=== PATIENT | male | born 1980 | race Caucasian/White ===

== ENCOUNTER 2018-02-13 07:11 | Observation (INO) ==
[2018-02-13] MEDS ORDERED: NITROGLYCERIN SL 0.4 MG TABLET SL PRN (07:26)
[2018-02-13] MEDS ORDERED: METOPROLOL TARTRATE 5 MG/5 ML VIAL IV STA (07:26)
[2018-02-13] MEDS ORDERED: ENOXAPARIN 100 MG/ML SYRINGE SUBCUT STA (07:26)
[2018-02-13] MEDS ORDERED: ASPIRIN 325 MG TABLET PO STA (07:26)
[2018-02-13] MEDS ORDERED: MORPHINE 4 MG/1 ML VIAL IV PRN (07:26)
[2018-02-13] MEDS ORDERED: ONDANSETRON 4 MG/2 ML VIAL IV PRN ×2 (07:26→11:16)
[2018-02-13 07:50] LABS: Basophils % 0.3 % (0.0-0.8); Eosinophils % 0.3 % (0.00-10.9); Hemoglobin 16.7 GM/DL (14.0-18.0); Immature Granulocytes % 0.5 %; Immature Granulocytes Absolute 0.05 #; Lymphocytes # 2.1 10*3/uL (1.4-4.0); Lymphocytes % 21.7 % (21.2-54.2); Mean Corpuscular HGB Conc 35.5 GM/DL (32-36); Mean Corpuscular Hemoglobin 31 PG (27-34); Mean Corpuscular Volume 85.8 FL (87-102); Mean Platelet Volume 8.6 FL (9.6-12.0); Monocytes # 0.5 10*3/uL (0.11-0.8); Monocytes % 5.3 % (1.7-12.7); Neutrophils % 71.9 % (38.7-73.9); Platelet Count 254 T/CUMM (130-400); Red Blood Count 5.48 MC/CUMM (3.8-5.5); Red Cell Distribution Width 11.9 % (9.3-17.3); White Blood Count 9.7 T/CUMM (4-12)
[2018-02-13 07:57] LABS: INR 0.9; Partial Thromboplastin Time 27.6 SECS (0-40)
[2018-02-13 08:20] LABS: Albumin 3.9 G/DL (3.4-5.0); Bilirubin,Total 1.3 MG/DL (0.2-1.0); Calcium 8.6 MG/DL (8.5-10.1); Osmolality,Calculated 280.4 MOS/KG (273-304); Potassium 3.8 MMOL/L (3.5-5.1); Total Protein 7.2 G/DL (6.4-8.3)
[2018-02-13] MEDS: NITROGLYCERIN 2% OINT 1 INCH/GM PACK TOP STA ×2 (10:28→10:51)
[2018-02-13 10:48] LABS: Apearance,Urine CLEAR (Clear); Bilirubin,Urine Negative (Negative); Blood, Urine Negative (Negative); Glucose,Urine (UA) Negative (Negative); Ketones,Urine Negative (Negative); Mucus,Urine Occasional /LPF (Occasional); Nitrite,Urine Negative (Negative); Protein,Urine Negative; RBC,Urine 2 /HPF (0-4); Urine Color Yellow (Yellow); Urine Specific Gravity 1.025 (1.001-1.035); Urine Urobilinogen < 2.0 EU/DL (0.2-1.0); WBC,Urine <1 /HPF (0-6)
[2018-02-13 10:52] LABS: Barbiturates Screen,Urine Negative (Negative); Benzodiazepines Screen,Urine Negative (Negative); Cannabinoid Screen,Urine Negative (Negative); Opiate Screen,Urine Positive (Negative); Phencyclidine Screen,Urine Negative (Negative)
[2018-02-13] MEDS ORDERED: PANTOPRAZOLE 40 MG TABLET PO SCH (11:16)
[2018-02-13] MEDS ORDERED: ACETAMINOPHEN 325 MG TABLET PO PRN (11:16)
[2018-02-13] MEDS: SODIUM CHLORIDE 0.9% 1,000 ML IV SCH ×2 (13:19→21:03)
[2018-02-13] MEDS: DOCUSATE SODIUM 100 MG CAPSULE PO SCH ×2 (13:19→21:04)
[2018-02-13] MEDS ORDERED: clonazePAM 0.5 MG TABLET PO PRN (15:35)
[2018-02-13 20:47] LABS: Risk Ratio 5.15; VLDL CHOLESTEROL 66.8 MG/DL
[2018-02-13] MEDS ORDERED: ENOXAPARIN 100 MG/ML SYRINGE SUBCUT ONE (21:00)
[2018-02-13] MEDS: DOXEPIN 25 MG CAPSULE PO SCH (21:06)
[2018-02-13] MEDS: PANTOPRAZOLE 40 MG TABLET PO SCH (21:07)
[2018-02-13] MEDS: GABAPENTIN 100 MG CAPSULE PO SCH ×2 (21:07)
[2018-02-13] MEDS: ACETAMINOPHEN 325 MG TABLET PO SCH ×2 (21:14→21:17)
[2018-02-13] MEDS: traMADol 50 MG TABLET PO SCH ×2 (21:14→21:17)
[2018-02-13] MEDS ORDERED: FLUoxetine 20 MG CAPSULE PO ONE (21:30)
[2018-02-14] MEDS: SODIUM CHLORIDE 0.9% 1,000 ML IV SCH ×3 (05:05→21:11)
[2018-02-14 05:10] LABS: Basophils % 0.5 % (0.0-0.8); Eosinophils % 0.6 % (0.00-10.9); Hematocrit 43.6 VOL% (42.0-52.0); Hemoglobin 15.2 GM/DL (14.0-18.0); Immature Granulocytes % 0.6 %; Immature Granulocytes Absolute 0.04 #; Lymphocytes # 2.8 10*3/uL (1.4-4.0); Lymphocytes % 43.3 % (21.2-54.2); Mean Corpuscular HGB Conc 34.9 GM/DL (32-36); Mean Corpuscular Hemoglobin 30 PG (27-34); Mean Platelet Volume 8.4 FL (9.6-12.0); Monocytes # 0.5 10*3/uL (0.11-0.8); Monocytes % 7.5 % (1.7-12.7); Neutrophils # 3.1 10*3/uL (1.4-7.4); Neutrophils % 47.5 % (38.7-73.9); Platelet Count 200 T/CUMM (130-400); Red Blood Count 5.07 MC/CUMM (3.8-5.5); Red Cell Distribution Width 12.1 % (9.3-17.3); White Blood Count 6.5 T/CUMM (4-12)
[2018-02-14 05:43] LABS: Albumin 3.2 G/DL (3.4-5.0); Bilirubin,Total 0.8 MG/DL (0.2-1.0); Calcium 7.9 MG/DL (8.5-10.1); Potassium 4.2 MMOL/L (3.5-5.1); Total Protein 6.1 G/DL (6.4-8.3)
[2018-02-14] MEDS ORDERED: POTASSIUM CHLORIDE RIDER 10 MEQ in PREMIX 1 EACH IV PRN (08:43)
[2018-02-14] MEDS ORDERED: DIAZEPAM 5 MG TABLET PO ONE (08:43)
[2018-02-14] MEDS ORDERED: diphenhydrAMINE CAP 25 MG CAPSULE PO ONE (08:43)
[2018-02-14] MEDS ORDERED: MAGNESIUM SULF RIDER 2 GM in PREMIX 1 EACH IV PRN (08:43)
[2018-02-14] MEDS: GABAPENTIN 100 MG CAPSULE PO SCH ×3 (10:20→21:05)
[2018-02-14] MEDS: LISINOPRIL/HCTZ 20-25 MG TABLET PO SCH (10:20)
[2018-02-14] MEDS: PANTOPRAZOLE 40 MG TABLET PO SCH ×2 (10:20→21:05)
[2018-02-14] MEDS: ASPIRIN CHEW 81 MG TABLET PO SCH (10:20)
[2018-02-14] MEDS: DOCUSATE SODIUM 100 MG CAPSULE PO SCH ×2 (10:20→21:06)
[2018-02-14] MEDS: ACETAMINOPHEN 325 MG TABLET PO SCH ×2 (10:21→21:05)
[2018-02-14] MEDS: traMADol 50 MG TABLET PO SCH ×2 (10:21→21:05)
[2018-02-14] MEDS: FLUoxetine 20 MG CAPSULE PO SCH (10:21)
[2018-02-14] MEDS ORDERED: VERAPAMIL 5 MG/2 ML VIAL ONE (10:50)
[2018-02-14] MEDS ORDERED: NITROGLYCERIN DRIP 50 MG/250 ML BOTTLE IV ONE (10:50)
[2018-02-14] MEDS ORDERED: MIDAZOLAM 2 MG/2 ML VIAL ONE (10:56)
[2018-02-14] MEDS ORDERED: fentaNYL 100 MCG/2 ML VIAL ONE (10:56)
[2018-02-14] MEDS ORDERED: ENOXAPARIN 60 MG/0.6 ML SYRINGE ONE (11:14)
[2018-02-14] MEDS ORDERED: FENOFIBRATE 145 MG TABLET PO SCH (21:00)
[2018-02-14] MEDS ORDERED: ROSUVASTATIN 10 MG TABLET PO SCH (21:00)
[2018-02-14] MEDS: DOXEPIN 25 MG CAPSULE PO SCH (21:05)
[2018-02-15 04:34] LABS: Basophils % 0.4 % (0.0-0.8); Eosinophils % 0.6 % (0.00-10.9); Hematocrit 42.4 VOL% (42.0-52.0); Hemoglobin 14.6 GM/DL (14.0-18.0); Immature Granulocytes % 0.6 %; Immature Granulocytes Absolute 0.04 #; Lymphocytes # 2.8 10*3/uL (1.4-4.0); Lymphocytes % 38.8 % (21.2-54.2); Mean Corpuscular HGB Conc 34.4 GM/DL (32-36); Mean Corpuscular Hemoglobin 30 PG (27-34); Mean Corpuscular Volume 88.3 FL (87-102); Mean Platelet Volume 8.6 FL (9.6-12.0); Monocytes # 0.5 10*3/uL (0.11-0.8); Monocytes % 7.3 % (1.7-12.7); Neutrophils # 3.7 10*3/uL (1.4-7.4); Neutrophils % 52.3 % (38.7-73.9); Platelet Count 214 T/CUMM (130-400); Red Cell Distribution Width 11.9 % (9.3-17.3); White Blood Count 7.1 T/CUMM (4-12)
[2018-02-15] MEDS: SODIUM CHLORIDE 0.9% 1,000 ML IV SCH (05:13)
[2018-02-15 05:17] LABS: Calcium 7.8 MG/DL (8.5-10.1); Osmolality,Calculated 283.1 MOS/KG (273-304); Potassium 3.9 MMOL/L (3.5-5.1)
[2018-02-15 07:31] VITALS: BP 126/82
[2018-02-15] MEDS: LISINOPRIL/HCTZ 20-25 MG TABLET PO SCH (09:11)
[2018-02-15] MEDS: ASPIRIN CHEW 81 MG TABLET PO SCH (09:11)
[2018-02-15] MEDS: FLUoxetine 20 MG CAPSULE PO SCH (09:11)
[2018-02-15] MEDS: DOCUSATE SODIUM 100 MG CAPSULE PO SCH (09:12)
[2018-02-15] MEDS: PANTOPRAZOLE 40 MG TABLET PO SCH (09:12)
[2018-02-15] MEDS: traMADol 50 MG TABLET PO SCH (09:12)
[2018-02-15] MEDS: ACETAMINOPHEN 325 MG TABLET PO SCH (09:12)
[2018-02-15] MEDS: GABAPENTIN 100 MG CAPSULE PO SCH (09:12)
== END 2018-02-15 10:55 | disposition home or self-care (01) ==
LOC: N.ED 07:11 → N.EDINP 07:11 → N.TELES 10:04
PROVIDERS: ADMIT Family Medicine; ATTEND Family Medicine
PROC: CLCCHCL (ICD-10-PCS; 2018-02-14 12:15)

== ENCOUNTER 2019-01-11 06:24 | Observation (INO) ==
[2019-01-11] MEDS ORDERED: ALUM/MAG/SIMETH/LIDO VISC 1:1 30 ML BOTTLE PO STA (06:43)
[2019-01-11 07:07] LABS: Basophils % 0.4 % (0.0-0.8); Eosinophils % 0.1 % (0.00-10.9); Hematocrit 46.2 VOL% (42.0-52.0); Hemoglobin 15.5 GM/DL (14.0-18.0); Immature Granulocytes % 0.5 %; Immature Granulocytes Absolute 0.04 #; Lymphocytes % 25.6 % (21.2-54.2); Mean Corpuscular HGB Conc 33.5 GM/DL (32-36); Mean Corpuscular Hemoglobin 30 PG (27-34); Mean Corpuscular Volume 90.2 FL (87-102); Mean Platelet Volume 8.3 FL (9.6-12.0); Monocytes # 0.4 10*3/uL (0.11-0.8); Neutrophils # 5.5 10*3/uL (1.4-7.4); Neutrophils % 68.4 % (38.7-73.9); Platelet Count 225 T/CUMM (130-400); Red Blood Count 5.12 MC/CUMM (3.8-5.5); Red Cell Distribution Width 12.2 % (9.3-17.3)
[2019-01-11 07:18] LABS: INR 0.9; PT Patient Result 10.2 SECS; Partial Thromboplastin Time 26.1 SECS (0-40)
[2019-01-11 07:26] LABS: Albumin 3.7 G/DL (3.4-5.0); Bilirubin,Total 0.4 MG/DL (0.2-1.0); Calcium 8.4 MG/DL (8.5-10.1); Osmolality,Calculated 280.4 MOS/KG (273-304); Potassium 4.2 MMOL/L (3.5-5.1)
[2019-01-11] MEDS ORDERED: ONDANSETRON 4 MG/2 ML VIAL IV PRN (09:31)
[2019-01-11] MEDS ORDERED: DOCUSATE SODIUM 100 MG CAPSULE PO SCH (09:31)
[2019-01-11] MEDS ORDERED: PANTOPRAZOLE 40 MG TABLET PO SCH (09:31)
[2019-01-11] MEDS ORDERED: LISINOPRIL/HCTZ 20-25 MG TABLET PO SCH (10:00)
[2019-01-11] MEDS ORDERED: MORPHINE 4 MG/1 ML VIAL IV PRN (10:02)
[2019-01-11] MEDS ORDERED: ASPIRIN EC 81 MG TABLET PO SCH (10:30)
[2019-01-11] MEDS: ACETAMINOPHEN 325 MG TABLET PO PRN (11:23)
[2019-01-11] MEDS ORDERED: LISINOPRIL 10 MG TABLET PO ONE (11:42)
[2019-01-11] MEDS ORDERED: PROPRANOLOL 10 MG TABLET PO SCH (13:30)
[2019-01-11] MEDS ORDERED: clonazePAM 0.5 MG TABLET PO SCH (15:00)
[2019-01-11 16:16] VITALS: BP 123/69
[2019-01-11] MEDS ORDERED: DOXEPIN 25 MG CAPSULE PO SCH (21:00)
[2019-01-11] MEDS ORDERED: ROSUVASTATIN 10 MG TABLET PO SCH (21:00)
[2019-01-12] MEDS ORDERED: buPROPion XL 150 MG TABLET PO SCH (09:00)
[2019-01-12] MEDS ORDERED: FLUoxetine 20 MG CAPSULE PO SCH (09:00)
== END 2019-01-11 18:39 | disposition home or self-care (01) ==
LOC: N.ED 06:24 → N.EDINP 06:24 → N.TELEN 09:20
PROVIDERS: ADMIT Family Medicine; ATTEND Family Medicine

== ENCOUNTER 2021-03-31 07:20 | Inpatient (IN) ==
[2021-03-31] MEDS ORDERED: HYDROmorphone 2 MG/1 ML VIAL IV STA (07:37)
[2021-03-31] MEDS ORDERED: ONDANSETRON 4 MG/2 ML VIAL IV STA (07:37)
[2021-03-31] MEDS ORDERED: SODIUM CHLORIDE 0.9% 1,000 ML IV STA (07:37)
[2021-03-31 07:53] LABS: Basophils % 0.2 % (0.0-0.8); Eosinophils % 0.1 % (0.00-10.9); Hematocrit 44.3 VOL% (42.0-52.0); Hemoglobin 15.9 GM/DL (14.0-18.0); Immature Granulocytes % 0.5 %; Immature Granulocytes Absolute 0.06 #; Lymphocytes % 25.9 % (21.2-54.2); Mean Corpuscular HGB Conc 35.9 GM/DL (32-36); Mean Platelet Volume 8.2 FL (9.6-12.0); Monocytes % 7.4 % (1.7-12.7); Neutrophils % 65.9 % (38.7-73.9); Platelet Count 218 T/CUMM (130-400); Red Blood Count 5.09 MC/CUMM (3.8-5.5); Red Cell Distribution Width 12.2 % (9.3-17.3); White Blood Count 11.4 T/CUMM (4-12)
[2021-03-31 08:13] LABS: Alanine Aminotransferase 37 U/L (16-61); Albumin 3.9 G/DL (3.4-5.0); Alkaline Phosphatase 92 U/L (45-117); Aspartate Amino Transferase 18 U/L (0-37); Bilirubin,Total < 0.39 MG/DL (0.2-1.0); Blood Urea Nitrogen 14 MG/DL (7-18); Calcium 8.8 MG/DL (8.5-10.1); Carbon Dioxide 29 MMOL/L (21-32); Estimated Glom Filtration Rate 132 ML/MIN; Glucose 89 MG/DL (74-106); Osmolality,Calculated 272.8 MOS/KG (273-304); Sodium 137 MMOL/L (136-145); Total Protein 7.4 G/DL (6.4-8.2)
[2021-03-31 10:31] LABS: Bilirubin,Urine Negative (Negative); Blood, Urine Negative (Negative); Glucose,Urine (UA) Negative (Negative); Hyaline Casts,Urine 5 /LPF (0-3); Ketones,Urine Negative (Negative); Mucus,Urine Many /LPF (Occasional); Nitrite,Urine Negative (Negative); Protein,Urine 30 MG/DL; RBC,Urine 2 /HPF (0-4); Urine Appearance CLEAR (Clear); Urine Color Yellow (Yellow); Urine Specific Gravity 1.029 (1.001-1.035)
[2021-03-31] MEDS ORDERED: ACETAMINOPHEN 325 MG TABLET PO PRN (11:21)
[2021-03-31] MEDS ORDERED: ONDANSETRON 4 MG/2 ML VIAL IV PRN (11:21)
[2021-03-31] MEDS: SODIUM CHLORIDE 0.9% 1,000 ML IV SCH ×2 (11:50→20:19)
[2021-03-31] MEDS: PANTOPRAZOLE 40 MG TABLET PO SCH (12:29)
[2021-03-31] MEDS: DOCUSATE SODIUM 100 MG CAPSULE PO SCH ×2 (12:29→20:20)
[2021-03-31] MEDS ORDERED: clonazePAM 0.5 MG TABLET PO PRN (14:07)
[2021-03-31] MEDS ORDERED: ZALEPLON 5 MG CAPSULE PO PRN (17:26)
[2021-03-31] MEDS: DOXEPIN 25 MG CAPSULE PO SCH (20:19)
[2021-03-31] MEDS: ROSUVASTATIN 10 MG TABLET PO SCH (20:20)
[2021-03-31] MEDS: PRIMIDONE 50 MG TABLET PO SCH (20:20)
[2021-04-01] MEDS: HYDROmorphone 2 MG/1 ML VIAL IV PRN ×3 (01:32→21:17)
[2021-04-01] MEDS: SODIUM CHLORIDE 0.9% 1,000 ML IV SCH ×2 (04:10→16:53)
[2021-04-01 06:12] LABS: Basophils % 0.3 % (0.0-0.8); Eosinophils % 0.3 % (0.00-10.9); Hematocrit 43.2 VOL% (42.0-52.0); Hemoglobin 14.3 GM/DL (14.0-18.0); Immature Granulocytes % 0.8 %; Immature Granulocytes Absolute 0.05 #; Lymphocytes # 3.2 10*3/uL (1.4-4.0); Mean Corpuscular HGB Conc 33.1 GM/DL (32-36); Mean Corpuscular Volume 91.3 FL (87-102); Mean Platelet Volume 8.3 FL (9.6-12.0); Monocytes % 7.3 % (1.7-12.7); Neutrophils % 43.3 % (38.7-73.9); Platelet Count 190 T/CUMM (130-400); Red Blood Count 4.73 MC/CUMM (3.8-5.5); Red Cell Distribution Width 12.5 % (9.3-17.3); White Blood Count 6.6 T/CUMM (4-12)
[2021-04-01 06:47] LABS: Calcium 7.9 MG/DL (8.5-10.1); Osmolality,Calculated 279.4 MOS/KG (273-304); Potassium 4.5 MMOL/L (3.5-5.1)
[2021-04-01] MEDS ORDERED: LACTATED RINGERS 1,000 ML IV SCH (08:00)
[2021-04-01] MEDS: ASPIRIN EC 81 MG TABLET PO SCH (12:00)
[2021-04-01] MEDS: LISINOPRIL/HCTZ 20-25 MG TABLET PO SCH (12:01)
[2021-04-01] MEDS: buPROPion XL 150 MG TABLET PO SCH (12:01)
[2021-04-01] MEDS: DOCUSATE SODIUM 100 MG CAPSULE PO SCH ×2 (12:01→21:19)
[2021-04-01] MEDS: FLUoxetine 20 MG CAPSULE PO SCH (12:01)
[2021-04-01] MEDS: PANTOPRAZOLE 40 MG TABLET PO SCH (12:01)
[2021-04-01] MEDS: PRIMIDONE 50 MG TABLET PO SCH ×2 (12:01→21:18)
[2021-04-01] MEDS ORDERED: propofoL 200 MG/20 ML VIAL IV ONE (13:43)
[2021-04-01] MEDS ORDERED: LIDOCAINE 100 MG/5 ML SYRINGE ONE (13:43)
[2021-04-01] MEDS: DOXEPIN 25 MG CAPSULE PO SCH (21:19)
[2021-04-01] MEDS: ROSUVASTATIN 10 MG TABLET PO SCH (21:19)
[2021-04-02 06:17] LABS: Basophils % 0.3 % (0.0-0.8); Eosinophils % 0.1 % (0.00-10.9); Hematocrit 42.7 VOL% (42.0-52.0); Hemoglobin 14.1 GM/DL (14.0-18.0); Immature Granulocytes % 0.6 %; Immature Granulocytes Absolute 0.04 #; Lymphocytes # 2.1 10*3/uL (1.4-4.0); Lymphocytes % 29.4 % (21.2-54.2); Mean Platelet Volume 8.2 FL (9.6-12.0); Monocytes % 8.3 % (1.7-12.7); Neutrophils % 61.3 % (38.7-73.9); Platelet Count 183 T/CUMM (130-400); Red Blood Count 4.69 MC/CUMM (3.8-5.5); Red Cell Distribution Width 12.3 % (9.3-17.3); White Blood Count 7.2 T/CUMM (4-12)
[2021-04-02 06:47] LABS: Albumin 3.1 G/DL (3.4-5.0); Bilirubin,Total 0.7 MG/DL (0.2-1.0); Calcium 8.2 MG/DL (8.5-10.1); Osmolality,Calculated 278.4 MOS/KG (273-304); Potassium 3.9 MMOL/L (3.5-5.1); Risk Ratio 5.78; Total Protein 6.1 G/DL (6.4-8.2); VLDL Cholesterol 52.8 MG/DL
[2021-04-02 07:26] LABS: Sedimentation Rate-Westergren 5 MM/HR (0-15)
[2021-04-02] MEDS ORDERED: HYOSCYAMINE 0.125 MG TABLET PO PRN (08:10)
[2021-04-02] MEDS: FLUoxetine 20 MG CAPSULE PO SCH (08:19)
[2021-04-02] MEDS: buPROPion XL 150 MG TABLET PO SCH (08:20)
[2021-04-02] MEDS: PANTOPRAZOLE 40 MG TABLET PO SCH (08:20)
[2021-04-02] MEDS: LISINOPRIL/HCTZ 20-25 MG TABLET PO SCH (08:20)
[2021-04-02] MEDS: ASPIRIN EC 81 MG TABLET PO SCH (08:20)
[2021-04-02] MEDS: DOCUSATE SODIUM 100 MG CAPSULE PO SCH (08:20)
[2021-04-02] MEDS: PRIMIDONE 50 MG TABLET PO SCH (08:20)
[2021-04-02] MEDS: SODIUM CHLORIDE 0.9% 1,000 ML IV SCH (08:23)
[2021-04-02 12:12] VITALS: BP 135/64
[2021-04-02] MEDS ORDERED: AMITRIPTYLINE 25 MG TABLET PO SCH (21:00)
== END 2021-04-02 14:16 | disposition home or self-care (01) | DRG 392 ==
LOC: N.ED 07:20 → N.EDINP 07:39 → N.5E 10:59
PROVIDERS: ADMIT Family Medicine; ATTEND Family Medicine

== ENCOUNTER 2022-07-05 07:11 | Observation (INO) ==
[2022-07-05] MEDS ORDERED: HYDROmorphone 1 MG/1 ML SYRINGE IV STA (07:31)
[2022-07-05] MEDS ORDERED: SODIUM CHLORIDE 0.9% 1,000 ML IV STA (07:31)
[2022-07-05] MEDS ORDERED: ONDANSETRON 4 MG/2 ML VIAL IV STA (07:31)
[2022-07-05 07:58] LABS: Basophils % 0.4 % (0.0-0.8); Eosinophils % 0.3 % (0.00-10.9); Hematocrit 49.4 VOL% (42.0-52.0); Hemoglobin 16.4 GM/DL (14.0-18.0); Immature Granulocytes % 0.6 %; Immature Granulocytes Absolute 0.05 #; Lymphocytes # 1.6 10*3/uL (1.4-4.0); Lymphocytes % 20.5 % (21.2-54.2); Mean Corpuscular HGB Conc 33.2 GM/DL (32-36); Mean Platelet Volume 8.4 FL (9.6-12.0); Monocytes # 0.5 10*3/uL (0.11-0.8); Monocytes % 6.2 % (1.7-12.7); Platelet Count 260 T/CUMM (130-400); Red Blood Count 5.81 MC/CUMM (3.8-5.5); Red Cell Distribution Width 13.3 % (9.3-17.3)
[2022-07-05 08:23] LABS: Bilirubin,Total 0.8 MG/DL (0.20-1.00); Calcium 9.4 MG/DL (8.5-10.1); Potassium 3.8 MMOL/L (3.5-5.1)
[2022-07-05 11:46] LABS: Bacteria,Urine Occasional /HPF (Few); Glucose,Urine (UA) Negative (Negative); Ketones,Urine Negative (Negative); Mucus,Urine Few /LPF (Occasional); Nitrite,Urine Negative (Negative); Protein,Urine Negative (Negative); RBC,Urine 1 /HPF (0-4); Urine Appearance Clear (Clear); Urine Color Yellow (Yellow); Urine pH 5.5 (4.5-8.0)
[2022-07-05 11:47] LABS: Bilirubin,Urine Negative (Negative); Blood, Urine Negative (Negative)
[2022-07-05] MEDS ORDERED: hydrALAZINE 20 MG/1 ML VIAL IV PRN (12:28)
[2022-07-05] MEDS ORDERED: ACETAMINOPHEN 325 MG TABLET PO PRN (12:28)
[2022-07-05] MEDS ORDERED: PROMETHAZINE 25 MG TABLET PO PRN (12:33)
[2022-07-05] MEDS: ONDANSETRON 4 MG/2 ML VIAL IV PRN ×2 (12:41→20:32)
[2022-07-05] MEDS: LACTATED RINGERS 1,000 ML IV SCH ×2 (13:40→20:33)
[2022-07-05] MEDS: PANTOPRAZOLE 40 MG VIAL IV SCH (13:40)
[2022-07-05 14:26] LABS: Hematocrit 47.8 VOL% (42.0-52.0); Hemoglobin 15.9 GM/DL (14.0-18.0)
[2022-07-05] MEDS: clonazePAM 0.5 MG TABLET PO SCH ×2 (14:28→20:31)
[2022-07-05] MEDS: MORPHINE 2 MG/1 ML SYRINGE IV PRN ×2 (16:30→20:33)
[2022-07-05 18:59] LABS: Hematocrit 43.8 VOL% (42.0-52.0); Hemoglobin 14.7 GM/DL (14.0-18.0)
[2022-07-05] MEDS: PRIMIDONE 50 MG TABLET PO SCH (20:32)
[2022-07-05] MEDS ORDERED: ROSUVASTATIN 10 MG TABLET PO SCH (21:00)
[2022-07-06 00:38] LABS: Hematocrit 41.9 VOL% (42.0-52.0)
[2022-07-06] MEDS: ONDANSETRON 4 MG/2 ML VIAL IV PRN (04:35)
[2022-07-06] MEDS: LACTATED RINGERS 1,000 ML IV SCH (04:36)
[2022-07-06] MEDS: MORPHINE 2 MG/1 ML SYRINGE IV PRN (04:36)
[2022-07-06 05:46] LABS: Albumin 3.4 G/DL (3.4-5.0); Bilirubin,Total 0.9 MG/DL (0.20-1.00); Calcium 8.8 MG/DL (8.5-10.1); Osmolality,Calculated 276.7 MOS/KG (273-304); Potassium 3.6 MMOL/L (3.5-5.1); Total Protein 6.7 G/DL (6.4-8.2)
[2022-07-06 05:49] LABS: Basophils % 0.5 % (0.0-0.8); Eosinophils % 0.3 % (0.00-10.9); Hematocrit 42.8 VOL% (42.0-52.0); Hemoglobin 14.1 GM/DL (14.0-18.0); Immature Granulocytes % 0.5 %; Immature Granulocytes Absolute 0.03 #; Lymphocytes # 1.9 10*3/uL (1.4-4.0); Lymphocytes % 30.4 % (21.2-54.2); Mean Corpuscular HGB Conc 32.9 GM/DL (32-36); Mean Corpuscular Volume 87.7 FL (87-102); Mean Platelet Volume 8.3 FL (9.6-12.0); Monocytes # 0.6 10*3/uL (0.11-0.8); Monocytes % 9.1 % (1.7-12.7); Neutrophils % 59.2 % (38.7-73.9); Platelet Count 208 T/CUMM (130-400); Red Blood Count 4.88 MC/CUMM (3.8-5.5); Red Cell Distribution Width 13.2 % (9.3-17.3); White Blood Count 6.3 T/CUMM (4-12)
[2022-07-06] MEDS: clonazePAM 0.5 MG TABLET PO SCH (08:48)
[2022-07-06] MEDS: PRIMIDONE 50 MG TABLET PO SCH (08:49)
[2022-07-06] MEDS: PANTOPRAZOLE 40 MG VIAL IV SCH (08:52)
[2022-07-06] MEDS ORDERED: FLUoxetine 20 MG CAPSULE PO SCH (09:00)
[2022-07-06] MEDS ORDERED: lisinopriL 20 MG TABLET PO SCH (09:00)
[2022-07-06] MEDS ORDERED: buPROPion XL 150 MG TABLET PO SCH (09:00)
[2022-07-06 11:53] VITALS: BP 122/70
[2022-07-07] MEDS ORDERED: PANTOPRAZOLE 40 MG TABLET PO SCH (06:30)
== END 2022-07-06 11:50 | disposition home or self-care (01) ==
LOC: N.EDINP 07:11 → N.ED 07:11 → N.5E 13:42
PROVIDERS: ADMIT Internal Medicine; ATTEND Internal Medicine